=== PATIENT | male | born 1950 | race Caucasian/White ===

== ENCOUNTER → 2017-03-20 | Outpatient (CLI) | payer BC, MEDICARE ==
--- NOTE | 2017-03-20 13:34 | XR ---
EXAMINATION TYPE: XR chest 2V DATE OF EXAM: 03/20/2017 COMPARISON: NONE INDICATION: Persistent cough respiratory infection TECHNIQUE: Frontal and lateral views of the chest are obtained. FINDINGS: The heart size is normal. The pulmonary vasculature is normal. The lungs are clear. Hyperinflation is present suggestive for COPD. IMPRESSION: 1. No acute pulmonary process. 2. Mild emphysematous change
== END | disposition home or self-care (01) ==
LOC: RADXRMAIN 12:42
PROVIDERS: ATTEND Internal Medicine
DX: J43.9 Emphysema, unspecified (principal)
CPT/HCPCS: 71020

== ENCOUNTER → 2018-03-25 | Outpatient (CLI) | payer MEDICARE ==
[2018-03-25 11:12] LABS: Blood Urea Nitrogen 25 mg/dL (9-20)
--- NOTE | 2018-03-25 12:15 | MR ---
EXAMINATION TYPE: MR brain and iac wo/w con DATE OF EXAM: 03/25/2018 11:53 AM COMPARISON: 04/24/2015 CT brain HISTORY: Hearing loss TECHNIQUE: Multiplanar and multispin-echo imaging of the brain was performed both before and after the administr ation of contrast. High-resolution images are obtained of the internal auditory canals performed uti lizing Gadavist 9 mL The ventricles, basal cisterns and sulci overlying the cerebral convexities are within normal limits. There is no evidence for midline shift or mass effect. Acute intracranial hemorrhage or extra-axial collection is not evident. There are no abnormal areas of increased or decreased signal intensity within the brain parenchyma. High-resolution imaging of the internal auditory canals fails demonstrate evidence for an enhancing a coustic schwannoma or cerebellopontine cistern angle mass. Following contrast administration, there is no evidence for pathologic enhancement or enhancing mass. The paranasal sinuses are well-aerated. Focal fluid collection in the region of the left-sided mastoi d air cells measuring 1.4 cm may reflect chronic mastoiditis. Underlying lesion is difficult to exclu de. Lesion appears to have been present in 2014 and is unchanged. Consider high-resolution CT of the temporal bones for further evaluation. IMPRESSION: 1. No evidence of acoustic schwannoma or cerebellopontine angle mass. 2. Probable chronic mastoiditis left-sided mastoid air cells.
== END ==
LOC: RADMRIMAIN 10:23
PROVIDERS: ATTEND Otolaryngology
DX: H93.12 Tinnitus, left ear (principal); H90.42 Sensorineural hearing loss, unilateral, left ear, with unrestricted hearing on the contralateral side
CPT/HCPCS: 82565; 84520; 70553; 36415; A9585

== ENCOUNTER → 2018-04-14 | Outpatient (CLI) | payer MEDICARE ==
[2018-04-14 11:41] LABS: Blood Urea Nitrogen 25 mg/dL (9-20)
--- NOTE | 2018-04-14 15:54 | CT ---
EXAMINATION TYPE: CT iac w con DATE OF EXAM: 04/14/2018 COMPARISON: CT brain 04/24/2015 HISTORY: Hearing loss, Left mastoiditis CT DLP: 150.00 mGycm Automated exposure control for dose reduction was used. CONTRAST: CT scan of the IACs is performed with IV Contrast, patient injected with 100 ml mL of Isovue 300. FINDINGS: Cerebellar pontine angles are normal. The internal auditory canals appear normal without expansion or erosion. No abnormal enhancement is evident. Remaining portions of the brain within the [id number] appear unremarkable without abnormal enhance ment Paranasal sinuses are clear. Right mastoid air cells are underpneumatized but clear. There is fluid w ithin the dependent left mastoid air cells. Mild mastoiditis may be present. Clinical correlation is recommended. Scutum are normal bilaterally. Incus and malleus appear unremarkable. Middle ears are without fluid. Attics are clear. Temporomandibular junctions appear normal. Cochlea and semicircular canals appear n ormal. IMPRESSION: 1. Mild fluid within the inferior left mastoid air cells. Correlate for mastoiditis. 2. Internal auditory canals appear normal.
== END | disposition home or self-care (01) ==
LOC: RADCTMAIN 10:52
PROVIDERS: ATTEND Otolaryngology
DX: R90.89 Other abnormal findings on diagnostic imaging of central nervous system (principal); H91.90 Unspecified hearing loss, unspecified ear
CPT/HCPCS: 82565; 84520; 70481; 36415; Q9967